=== PATIENT | female | born 1975 | race Caucasian/White ===

== ENCOUNTER 2016-11-29 15:18 | Emergency (ER) | payer BC ==
[~2016-11-29] VITALS: Ht 180.3 cm; Wt 102.1 kg
[~2016-11-29 15:18] MED LIST: BIAXIN500 MG PO; CLARITIN10 MG PO; FLEXERIL10 MG PO; MEDROL DOSEPAK4 MG PO; MOTRIN800 MG PO; NKHM; PREDNISONE20 MG PO; PROVENTIL0.09 MG/AC IH; VICODIN 500 MG-1 TAB PO
[2016-11-29 15:42] VITALS: BP 132/70
[2016-11-29 16:26] LABS: BASO % 0.3 % (0.0-1.0); EOS # 0.1 10*3/uL (0.0-0.4); EOS % 1.8 % (1.0-4.0); HEMATOCRIT 38.4 % (37.0-47.0); HEMOGLOBIN 12.5 g/dl (12.0-16.0); LYMPH % 27.3 % (27.0-41.0); MEAN CELL VOLUME 82.6 fl (81.0-99.0); MEAN CORPUSCULAR HGB 26.9 pg (27.0-31.0); MEAN CORPUSCULAR HGB CONC 32.6 g/dl (33.0-37.0); MEAN PLATELET VOLUME 9.4 fl (9.6-12.3); MONO # 0.5 10*3/uL (0.1-1.0); MONO % 6.5 % (3.0-9.0); NEUT # 4.7 10*3/uL (2.3-7.9); NEUT % 63.8 % (47.0-73.0); PLATELET COUNT AUTOMATED 267 10*3/uL (130-400); RED BLOOD COUNT 4.65 10*6/uL (4.10-5.10); RED CELL DISTRI WIDTH 14.5 % (0-14.5); WHITE BLOOD COUNT 7.4 10*3/uL (4.8-10.8)
[2016-11-29 16:43] LABS: ALBUMIN 3.4 gm/dl (3.1-4.5); ALKALINE PHOSPHATASE 109 U/L (45-117); BILIRUBIN, TOTAL 0.3 mg/dl (0.2-1.0); BUN 12 mg/dl (7-24); CARBON DIOXIDE 27 mmol/L (21-32); CHLORIDE 106 mmol/L (98-107); EST GLOM FILT AFRICAN AMERICAN > 60 ml/min; GLUCOSE 89 mg/dL (65-99); POTASSIUM 4.3 mmol/L (3.5-5.1); SGOT/AST 14 IU/L (3-35); SGPT/ALT 16 U/L (12-78); SODIUM 137 mmol/L (136-145); TOTAL PROTEIN 7.4 gm/dL (6.4-8.2)
[2016-11-29 16:44] LABS: TROPONIN I < 0.015 ng/ml (<0.045)
[2016-11-29] MEDS ORDERED: ZITHROMAX250 MG PO (17:04)
[2016-11-29] MEDS ORDERED: PREDNISONE20 M1 PO (17:04)
[2016-11-29] MEDS ORDERED: PROAIR HFA8.5 GM INH (17:04)
== END 2016-11-29 17:10 | disposition home or self-care (01) ==
LOC: ED 15:18
PROVIDERS: Nurse Practitioner Family
DX: J20.9 Acute bronchitis, unspecified (principal); F17.200 Nicotine dependence, unspecified, uncomplicated; Z98.51 Tubal ligation status; Z98.890 Other specified postprocedural states; Z79.899 Other long term (current) drug therapy; Z88.0 Allergy status to penicillin

== ENCOUNTER 2017-03-13 19:00 | Emergency (ER) | payer BC ==
[~2017-03-13] VITALS: Ht 182.8 cm; Wt 99.8 kg
[~2017-03-13 19:00] MED LIST changes: +PREDNISONE20 M1 PO; +PROAIR HFA8.5 GM INH; +ZITHROMAX250 MG PO
[2017-03-13 19:22] VITALS: BP 131/76
[2017-03-13] MEDS ORDERED: BACTRIM 400-801 EACH PO (19:36)
[2017-03-14] MEDS ORDERED: DOXYCYCLINE100 M3 PO (19:24)
== END 2017-03-13 19:55 | disposition home or self-care (01) ==
LOC: ED 19:00
DX: L02.416 Cutaneous abscess of left lower limb (principal); Z88.0 Allergy status to penicillin

== ENCOUNTER 2017-03-14 18:30 | Inpatient (IN) | payer BC ==
[~2017-03-14] VITALS: Ht 182.9 cm; Wt 103.9 kg
[~2017-03-14 18:30] MED LIST changes: +BACTRIM 400-801 EACH PO
[2017-03-14 18:39] VITALS: BP 143/88
[2017-03-14 19:23] LABS: BASO % 0.4 % (0.0-1.0); EOS # 0.1 10*3/uL (0.0-0.4); EOS % 1.7 % (1.0-4.0); HEMATOCRIT 35.7 % (37.0-47.0); HEMOGLOBIN 11.7 g/dl (12.0-16.0); LYMPH # 2.1 10*3/uL (1.3-4.4); MEAN CELL VOLUME 80.8 fl (81.0-99.0); MEAN CORPUSCULAR HGB 26.5 pg (27.0-31.0); MEAN CORPUSCULAR HGB CONC 32.8 g/dl (33.0-37.0); MEAN PLATELET VOLUME 9.8 fl (9.6-12.3); MONO # 0.3 10*3/uL (0.1-1.0); NEUT # 5.1 10*3/uL (2.3-7.9); NEUT % 66.6 % (47.0-73.0); PLATELET COUNT AUTOMATED 256 10*3/uL (130-400); RED BLOOD COUNT 4.42 10*6/uL (4.10-5.10); WHITE BLOOD COUNT 7.6 10*3/uL (4.8-10.8)
[2017-03-14] MEDS ORDERED: DOXYCYCLINE100 M3 PO (19:24)
[2017-03-14 19:40] LABS: ALBUMIN 3.5 gm/dl (3.1-4.5); ALKALINE PHOSPHATASE 114 U/L (45-117); BILIRUBIN, TOTAL 0.2 mg/dl (0.2-1.0); BUN 7 mg/dl (7-24); C-REACTIVE PROTEIN 2.16 MG/DL (0-0.3); CARBON DIOXIDE 23 mmol/L (21-32); CHLORIDE 110 mmol/L (98-107); EST GLOM FILT AFRICAN AMERICAN > 60 ml/min; GLUCOSE 98 mg/dL (65-99); POTASSIUM 3.6 mmol/L (3.5-5.1); SGOT/AST 16 IU/L (3-35); SGPT/ALT 17 U/L (12-78); SODIUM 138 mmol/L (136-145); TOTAL PROTEIN 7.1 gm/dL (6.4-8.2)
[2017-03-14 21:50] VITALS: BP 102/67
[2017-03-15] VITALS: BP 112/88
[2017-03-15 06:14] LABS: BASO % 0.5 % (0.0-1.0); EOS # 0.2 10*3/uL (0.0-0.4); EOS % 2.9 % (1.0-4.0); HEMATOCRIT 35.1 % (37.0-47.0); HEMOGLOBIN 11.3 g/dl (12.0-16.0); LYMPH # 1.5 10*3/uL (1.3-4.4); LYMPH % 23.8 % (27.0-41.0); MEAN CELL VOLUME 81.4 fl (81.0-99.0); MEAN CORPUSCULAR HGB 26.2 pg (27.0-31.0); MEAN CORPUSCULAR HGB CONC 32.2 g/dl (33.0-37.0); MEAN PLATELET VOLUME 10.2 fl (9.6-12.3); MONO # 0.4 10*3/uL (0.1-1.0); MONO % 6.2 % (3.0-9.0); NEUT # 4.2 10*3/uL (2.3-7.9); NEUT % 66.3 % (47.0-73.0); PLATELET COUNT AUTOMATED 237 10*3/uL (130-400); RED BLOOD COUNT 4.31 10*6/uL (4.10-5.10); RED CELL DISTRI WIDTH 16.4 % (0-14.5); WHITE BLOOD COUNT 6.3 10*3/uL (4.8-10.8)
[2017-03-15 06:38] LABS: HEMOGLOBIN A1c 6.1 % (4.8-5.6)
[2017-03-15 06:46] LABS: BUN 7 mg/dl (7-24); CARBON DIOXIDE 26 mmol/L (21-32); CHLORIDE 108 mmol/L (98-107); EST GLOM FILT AFRICAN AMERICAN > 60 ml/min; FREE T4 1.09 ng/dl (0.76-1.46); GLUCOSE 87 mg/dL (65-99); POTASSIUM 4.4 mmol/L (3.5-5.1); SODIUM 139 mmol/L (136-145)
[2017-03-15 08:00] VITALS: BP 104/73
[2017-03-15 12:00] VITALS: BP 103/64
[2017-03-15 16:00] VITALS: BP 110/73
[2017-03-15 16:48] LABS: FOLIC ACID 20.27 ng/mL (>5.38); VITAMIN D, 25-HYDROXY 30.5 ng/mL (30-100)
[2017-03-15 20:00] VITALS: BP 108/68
[2017-03-16] VITALS: BP 110/53
[2017-03-16 06:03] LABS: BASO % 0.6 % (0.0-1.0); EOS # 0.2 10*3/uL (0.0-0.4); HEMATOCRIT 33.9 % (37.0-47.0); LYMPH # 1.8 10*3/uL (1.3-4.4); LYMPH % 34.3 % (27.0-41.0); MEAN CELL VOLUME 83.3 fl (81.0-99.0); MEAN CORPUSCULAR HGB CONC 32.4 g/dl (33.0-37.0); MEAN PLATELET VOLUME 10.1 fl (9.6-12.3); MONO # 0.3 10*3/uL (0.1-1.0); MONO % 5.5 % (3.0-9.0); NEUT % 56.2 % (47.0-73.0); PLATELET COUNT AUTOMATED 228 10*3/uL (130-400); RED BLOOD COUNT 4.07 10*6/uL (4.10-5.10); RED CELL DISTRI WIDTH 16.5 % (0-14.5); WHITE BLOOD COUNT 5.3 10*3/uL (4.8-10.8)
[2017-03-16 06:28] LABS: BUN 8 mg/dl (7-24); CARBON DIOXIDE 24 mmol/L (21-32); CHLORIDE 113 mmol/L (98-107); EST GLOM FILT AFRICAN AMERICAN > 60 ml/min; GLUCOSE 89 mg/dL (65-99); POTASSIUM 4.6 mmol/L (3.5-5.1); SODIUM 141 mmol/L (136-145)
[2017-03-16 08:00] VITALS: BP 106/67
[2017-03-16 12:00] VITALS: BP 103/75
[2017-03-16 16:00] VITALS: BP 118/76
[2017-03-16 20:00] VITALS: BP 123/76
[2017-03-17] VITALS: BP 109/53
[2017-03-17 06:27] LABS: BASO % 0.5 % (0.0-1.0); EOS # 0.1 10*3/uL (0.0-0.4); EOS % 2.4 % (1.0-4.0); HEMATOCRIT 34.9 % (37.0-47.0); HEMOGLOBIN 11.3 g/dl (12.0-16.0); LYMPH # 1.7 10*3/uL (1.3-4.4); MEAN CELL VOLUME 82.9 fl (81.0-99.0); MEAN CORPUSCULAR HGB 26.8 pg (27.0-31.0); MEAN CORPUSCULAR HGB CONC 32.4 g/dl (33.0-37.0); MEAN PLATELET VOLUME 10.2 fl (9.6-12.3); MONO # 0.2 10*3/uL (0.1-1.0); MONO % 4.1 % (3.0-9.0); NEUT # 3.8 10*3/uL (2.3-7.9); NEUT % 63.8 % (47.0-73.0); PLATELET COUNT AUTOMATED 237 10*3/uL (130-400); RED BLOOD COUNT 4.21 10*6/uL (4.10-5.10); RED CELL DISTRI WIDTH 16.2 % (0-14.5); WHITE BLOOD COUNT 5.9 10*3/uL (4.8-10.8)
[2017-03-17 06:41] LABS: BUN 7 mg/dl (7-24); CARBON DIOXIDE 25 mmol/L (21-32); CHLORIDE 111 mmol/L (98-107); EST GLOM FILT AFRICAN AMERICAN > 60 ml/min; GLUCOSE 89 mg/dL (65-99); POTASSIUM 4.2 mmol/L (3.5-5.1); SODIUM 140 mmol/L (136-145)
[2017-03-17 08:00] VITALS: BP 122/76
[2017-03-17 12:00] VITALS: BP 128/90
[2017-03-17 16:00] VITALS: BP 103/63
[2017-03-17 20:00] VITALS: BP 124/80
[2017-03-18] VITALS: BP 121/54
[2017-03-18 05:56] LABS: BASO % 0.3 % (0.0-1.0); EOS # 0.2 10*3/uL (0.0-0.4); EOS % 2.6 % (1.0-4.0); HEMATOCRIT 34.1 % (37.0-47.0); LYMPH # 1.7 10*3/uL (1.3-4.4); LYMPH % 25.5 % (27.0-41.0); MEAN CELL VOLUME 83.2 fl (81.0-99.0); MEAN CORPUSCULAR HGB 26.8 pg (27.0-31.0); MEAN CORPUSCULAR HGB CONC 32.3 g/dl (33.0-37.0); MONO # 0.4 10*3/uL (0.1-1.0); MONO % 5.5 % (3.0-9.0); NEUT # 4.4 10*3/uL (2.3-7.9); NEUT % 65.8 % (47.0-73.0); PLATELET COUNT AUTOMATED 231 10*3/uL (130-400); WHITE BLOOD COUNT 6.6 10*3/uL (4.8-10.8)
[2017-03-18 08:00] VITALS: BP 119/77
[2017-03-18] MEDS ORDERED: B12,B-12,B 12500 MC1 PO (08:59)
[2017-03-18] MEDS ORDERED: DOXYCYCLINE100 M3 PO (09:07)
== END 2017-03-18 09:48 | disposition home or self-care (01) | DRG 603 ==
LOC: ED 18:30 → 5E 19:10 → EDHOLD 19:10 → 5E 19:54
PROVIDERS: Emergency Medicine Emergency Medical Services; Family Medicine; Internal Medicine Nephrology; Student in an Organized Health Care Education/Training Program
PROC: 0Y993ZZ Drainage of Right Lower Extremity, Percutaneous Approach (ICD-10-PCS; principal; 2017-03-15)
DX: L02.415 Cutaneous abscess of right lower limb (principal); E87.8 Other disorders of electrolyte and fluid balance, not elsewhere classified; L03.115 Cellulitis of right lower limb; G43.909 Migraine, unspecified, not intractable, without status migrainosus; R73.03 Prediabetes; D50.9 Iron deficiency anemia, unspecified; E53.8 Deficiency of other specified B group vitamins; Z98.51 Tubal ligation status; Z83.3 Family history of diabetes mellitus; Z82.49 Family history of ischemic heart disease and other diseases of the circulatory system; Z72.0 Tobacco use; Z88.0 Allergy status to penicillin; Z79.2 Long term (current) use of antibiotics; Z79.899 Other long term (current) drug therapy

== ENCOUNTER 2018-11-25 08:18 | Emergency (ER) | payer BC ==
[~2018-11-25] VITALS: Wt 99.9 kg
[~2018-11-25 08:18] MED LIST changes: +B12,B-12,B 12500 MC1 PO; +DOXYCYCLINE100 M3 PO
[2018-11-25 08:23] VITALS: BP 121/79
[2018-11-25 08:43] LABS: BASO % 0.2 % (0.0-1.0); EOS # 0.1 10*3/uL (0.0-0.4); EOS % 0.8 % (1.0-4.0); HEMATOCRIT 38.7 % (37.0-47.0); HEMOGLOBIN 12.8 g/dl (12.0-16.0); LYMPH # 0.8 10*3/uL (1.3-4.4); LYMPH % 13.3 % (27.0-41.0); MEAN CELL VOLUME 85.6 fl (81.0-99.0); MEAN CORPUSCULAR HGB 28.3 pg (27.0-31.0); MEAN CORPUSCULAR HGB CONC 33.1 g/dl (33.0-37.0); MEAN PLATELET VOLUME 9.2 fl (9.6-12.3); MONO # 0.3 10*3/uL (0.1-1.0); MONO % 4.2 % (3.0-9.0); NEUT % 81.2 % (47.0-73.0); PLATELET COUNT AUTOMATED 221 10*3/uL (130-400); RED BLOOD COUNT 4.52 10*6/uL (4.10-5.10); WHITE BLOOD COUNT 6.2 10*3/uL (4.8-10.8)
[2018-11-25 09:03] LABS: ALBUMIN 3.4 gm/dl (3.1-4.5); ALKALINE PHOSPHATASE 92 U/L (45-117); BUN 6 mg/dl (7-24); CHLORIDE 106 mmol/L (98-107); LIPASE 62 U/L (73-393); POTASSIUM 3.7 mmol/L (3.5-5.1); SGOT/AST 19 IU/L (3-35); SGPT/ALT 22 U/L (12-78); SODIUM 137 mmol/L (136-145); TOTAL PROTEIN 7.1 gm/dL (6.4-8.2)
[2018-11-25 09:06] LABS: BETA-HCG, QUANT < 1.0 mIU/mL (1-3)
[2018-11-25 10:03] LABS: BILIRUBIN NEGATIVE (NEGATIVE); BLOOD NEGATIVE (NEGATIVE); CLARITY CLEAR (CLEAR); COLOR YELLOW (YELLOW); GLUCOSE NEGATIVE (NEGATIVE); KETONE NEGATIVE (NEGATIVE); LEUKO ESTERASE NEGATIVE (NEGATIVE); NITRITE NEGATIVE (NEGATIVE); SPECIFIC GRAVITY <= 1.005 (1.005-1.030); UROBILINOGEN 0.2 E.U./dl (0.2-1.0)
[2018-11-25] MEDS ORDERED: LOPERAMIDE HCL2 M1 PO (11:12)
[2018-11-25] MEDS ORDERED: ZOFRAN4 MG PO (11:12)
== END 2018-11-25 11:14 | disposition home or self-care (01) ==
LOC: ED 08:18
PROVIDERS: Family Medicine
DX: K52.9 Noninfective gastroenteritis and colitis, unspecified (principal); F17.200 Nicotine dependence, unspecified, uncomplicated; Z88.0 Allergy status to penicillin; Z79.2 Long term (current) use of antibiotics; Z79.899 Other long term (current) drug therapy; Z98.51 Tubal ligation status

== ENCOUNTER → 2021-07-30 | Outpatient (CLI) | payer BC ==
[~2021-07-30] MED LIST changes: +LOPERAMIDE HCL2 M1 PO; +ZOFRAN4 MG PO
== END | disposition home or self-care (01) ==
LOC: COVID19 15:07
PROVIDERS: ATTEND Internal Medicine
DX: Z11.52 Encounter for screening for COVID-19 (principal)

== ENCOUNTER 2022-09-23 08:21 | Emergency (ER) | payer BC ==
[~2022-09-23] VITALS: Ht 185.4 cm; Wt 99.8 kg
[2022-09-23 08:37] VITALS: BP 114/63
[2022-09-23 10:10] LABS: BASO % 0.4 % (0.0-1.0); EOS # 0.1 10*3/uL (0.0-0.4); EOS % 1.2 % (1.0-4.0); HEMATOCRIT 41.9 % (37.0-47.0); LYMPH # 0.7 10*3/uL (1.3-4.4); LYMPH % 8.5 % (27.0-41.0); MEAN CELL VOLUME 89.5 fl (81.0-99.0); MEAN CORPUSCULAR HGB 28.6 pg (27.0-31.0); MEAN PLATELET VOLUME 9.8 fl (9.6-12.3); MONO # 0.4 10*3/uL (0.1-1.0); MONO % 4.6 % (3.0-9.0); NEUT % 84.9 % (47.0-73.0); PLATELET COUNT AUTOMATED 253 10*3/uL (130-400); RED BLOOD COUNT 4.68 10*6/uL (4.10-5.10); RED CELL DISTRI WIDTH 14.8 % (0-14.5); WHITE BLOOD COUNT 8.3 10*3/uL (4.8-10.8)
[2022-09-23 10:24] LABS: ACT PARTIAL THROMBO TIME 30.8 SECONDS (20.0-32.1)
[2022-09-23 10:27] LABS: ALKALINE PHOSPHATASE 101 U/L (46-116); BETA-HCG, QUANT < 3.0 mIU/mL (0-10); BUN 5 mg/dl (9-23); CHLORIDE 103 mmol/L (98-107); LIPASE 34 U/L (12-53); POTASSIUM 4.3 mmol/L (3.4-5.1); SGPT/ALT 16 U/L (10-49); TOTAL PROTEIN 7.4 gm/dL (6.0-8.0)
[2022-09-23] MEDS ORDERED: Motrin,Rufen800 MG PO (11:27)
[2022-09-23] MEDS ORDERED: ONDANSETRON4 MG SL (11:27)
== END 2022-09-23 11:38 | disposition home or self-care (01) ==
LOC: ED 08:21
PROVIDERS: Emergency Medicine
DX: B34.9 Viral infection, unspecified (principal); Z88.0 Allergy status to penicillin; Z90.89 Acquired absence of other organs; Z98.51 Tubal ligation status; Z98.890 Other specified postprocedural states; Z90.11 Acquired absence of right breast and nipple; F17.200 Nicotine dependence, unspecified, uncomplicated; Z20.822 Contact with and (suspected) exposure to COVID-19